=== PATIENT | female | born 2000 | race Caucasian/White ===

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

== ENCOUNTER 2024-03-20 23:02 | Emergency (ER) | payer MEDICAID, SELFPAY ==
[2024-03-20 23:03] VITALS: BP 136/81; PULSE 83; RESP 15; TEMP 36.8; O2SAT 97; BMI 33.5
[2024-03-20] MEDS: Ondansetron 4 MG/2 ML Vial IV (23:38)
[2024-03-20] MEDS: 0.9% Normal Saline (1000mL) 1,000 ML 999 ML IV (23:38)
[2024-03-20 23:44] LABS: Bacteria 0 SEEN /hpf (None Seen); Mucous, Urine 0 SEEN /hpf (<or=2+); Red Blood Cells-Urine 0 SEEN /hpf (0-5); Squamous Epithelial Cells - UA 0 SEEN /hpf (5-10); White Blood Cells 0 SEEN /hpf (0-5)
[2024-03-20 23:47] LABS: Absolute Neutrophil Count 5.4 X10^3/uL (2.0-7.7); Basophil# 0.05 X10^3/uL; Basophil% 0.6 % (0-1); Eosinophil# 0.12 X10^3/uL; Eosinophils% 1.3 % (0-5); Hematocrit 39.3 % (37-47); Hemoglobin 12.6 g/dL (12.0-15.0); Lymphocyte % 29.1 % (19-41); Mean Corp Hgb Conc 32.1 g/dL (32-36); Mean Corpuscular Volume 84.2 fL (81-99); Mean Platelet Vol. 10.5 fl (6.2-12.0); Monocyte# 0.71 X10^3/uL; NRBC Flagged by Analyzer 0 % (0-5); Neutrophil # 5.43 X10^3/uL (2.7-7.7); Neutrophil % 60.8 % (47-70); Platelet Count 321 K/mm3 (150-450); RBC Distribution Width CV 13.4 % (11.6-14.6); RBC Distribution Width SD 41.1 fl (35.1-43.9); Red Blood Count 4.67 M/mm3 (4.2-5.4); White Blood Count 8.9 K/mm3 (4.4-11.0)
[2024-03-20 23:52] LABS: Color, Urine Yellow (Yellow); Glucose, Dipstick Normal (Normal); Ketone-Dipstick Negative (Negative); Leukocyte Esterase-Dipstick Negative /ul (Negative); Nitrite-Dipstick Negative (Negative); Occult Blood-Urine Negative /ul (Negative); Protein-Dipstick Negative (Negative); Urine Bilirubin Dipstick Negative (Negative); Urine Clarity Clear (Clear); Urine Urobilinogen Normal (Normal)
[2024-03-20 23:55] LABS: Internal QC Validated? YES +Cl - CLEAR BKGD; Pregnancy, Urine Negative Negative
[2024-03-20 23:56] LABS: Record Kit Lot#,Urine Preg 718089
[2024-03-21 00:06] LABS: AST(SGOT) 16 U/L (15-37); Alanine Aminotransfer ALT/SGPT 20 U/L (13-56); Albumin, Serum 3.9 g/dL (3.2-5.0); Alkaline Phosphatase 93 U/L (45-117); Anion Gap 2 (5-15); BUN 12 mg/dL (7-18); BUN/Creat Ratio 17.7 RATIO (10-20); Bilirubin, Direct 0.05 mg/dL (0.00-0.30); Calcium,Total 9.5 mg/dL (8.5-10.1); Chloride 106 mmol/L (98-107); Creatinine, Serum 0.68 mg/dL (0.55-1.02); EST Glomerular Filtration Rate 114 mL/min (>60); Est Glom Filt Rate - Afr Amer 138 mL/min (>60); Estimated Creatinine Clearance 138.53 ml/min; Glucose 103 mg/dL (74-106); Lipase 40 U/L (13-75); Potassium 3.8 mmol/L (3.5-5.1); Protein, Total 6.9 g/dL (6.4-8.2); Sodium Level 138 mmol/L (136-145)
[2024-03-21 00:09] LABS: Lactic Acid 0.8 mmol/L (0.4-1.9)
[2024-03-21] MEDS: Morphine 4 MG/ML Syringe IV (01:01)
[2024-03-21 01:03] VITALS: BP 110/69; PULSE 69; RESP 17; O2SAT 97
--- NOTE | 2024-03-21 01:26 | US_ITS ---
We are attempting to reach an attending provider to discuss findings. An addendum with communication details will be sent when the communication is complete. INDICATION: ? Ovarian torsion -- RLQ pain two weeks EXAMINATION: Ultrasound US Transvaginal Non-OB TECHNIQUE: Transvaginal (for optimal evaluation of the adnexa) pelvic ultrasound was performed. Grayscale, spectral waveform, and color flow Doppler evaluation of the adnexa. COMPARISON: CT abdomen and pelvis earlier same day LMP: 03/04/2024. FINDINGS: UTERUS: 7.8 cm length. Normal configuration. ENDOMETRIUM: Not thickened. OVARIES: Right ovary: 3.4 x 1.8 x 1.9 cm. Left ovary: 2.5 x 1.5 x 1.9 cm. The ovaries appear unremarkable. Vascular flow demonstrated. No findings to suggest ovarian torsion. FREE FLUID: None. US/Transvaginal Non- IMPRESSION: No acute findings. Electronically Signed: Wilma Clay MD at 3:05 EDT ,
[2024-03-21 03:00] VITALS: BP 110/74; PULSE 64; RESP 18; O2SAT 98
--- NOTE | 2024-03-21 03:29 | EDS_ITS ---
HPI History of Present Illness Chief Complaint: Abd Pain Narrative Narrative: Patient is a 24-year-old female with no significant past medical history who is roughly 3 months . She states over the last 3 to 5 days she has been noticing increasing pain in the lower abdomen mainly the suprapubic to right lower quadrant region. She denies any dysuria or vaginal bleeding or discharge. She denies any concern for STD. She states that there has been no recent trauma. However the pain has worsened in the last few days and secondary to this she presents for evaluation [facility] Medical History no medical history Home Medications ?Medication ?Instructions ?Recorded ?Last Taken ?Type apixaban 5 mg tablet (Eliquis) 5 mg PO BID 30 days #60 tabs 03/21/24 Unknown Rx Allergy/AdvReac Type Severity Reaction Status Date / Time No Known Allergies Allergy Verified 03/20/24 23:05 Surgical History no surgical history Social History Smoking Status: Never smoker ROS ROS ED Constitutional Constitutional ED: Denies chills or fever(s) ENT ENT ED: Denies sore throat Cardiovascular Cardiovascular: Denies chest pain Respiratory/Chest Respiratory/Chest: Denies cough or dyspnea Gastrointestinal Gastrointestinal: Reports abdominal pain; Denies diarrhea, nausea or vomiting Genitourinary Genitourinary ED: Denies dysuria, hematuria or urinary frequency Musculoskeletal Musculoskeletal: Reports back pain; Denies myalgias Integumentary Denies rash Neurologic Neurologic: Denies headache(s) Hematologic/Lymphatic Hematologic/Lymphatic: Denies easy bleeding or easy bruising EXAM Physical Exam Const Vital Signs: 03/20/24 23:03 03/21/24 01:03 Temperature 98.3 F Temperature Source Temporal Pulse Rate 83 69 Respiratory Rate 15 17 Blood Pressure 136/81 H 110/69 Blood Pressure Mean 99 82 Pulse Ox 97 97 Oxygen Delivery Method Room Air Room Air Positive well nourished and well developed General Appearance ED: well developed; Negative for pallor HEENT HEENT Narrative: Normocephalic atraumatic Eyes PERRL and EOMs intact bilaterally General Eye ED: Negative for scleral icterus Neck supple Resp normal respiratory effort and clear to auscultation bilaterally Cardio regular rate and regular rhythm Rate: other Other Details: Heart is regular rate and rhythm without murmurs rubs or gallop Radial and carotid pulses are equal and symmetric GI non-distended GI Narrative: Abdomen is soft and nondistended with normal active bowel sounds. Patient has pain on palpation in the suprapubic and right lower quadrant greatest in the right lower quadrant. There is voluntary guarding at the site. Positive heel strike and psoas sign noted. Auscultation: normoactive bowel sounds Palpation: soft Back/Spine Back/Spine Narrative: Mild right CVA pain noted Extremity normal to inspection Extremity Narrative: No asymmetric edema no pitting edema negative Homans' sign bilaterally Neuro oriented x3, CN's II-XII intact bilaterally and no sensory deficits noted Sensorium / Orientation: alert Motor Exam: strength 5/5 throughout Psych mental status grossly normal Skin no rashes or lesions noted, no wounds and skin turgor normal General Skin Exam: Negative for jaundice or pallor MDM MDM MDM Narrative Medical decision making narrative: Patient arrived to the ER with stable vitals but had pain with guarding in the right lower quadrant and therefore differential diagnosis is for UTI versus pyelonephritis versus kidney stone versus appendicitis versus colitis versus ovarian cyst. Secondary to his basic labs and a CT scan with IV contrast was obtained. Labs revealed no clinically significant findings but CT scan did show changes consistent with ovarian vein thrombosis. I discussed the case with INVESTIGATOR OPERATOR and they want a emergent transvaginal ultrasound to rule out torsion. This was obtained and was normal. At this time based on the patient's CT scan showing the ovarian vein thrombosis she is at risk for potential clot migration and PE but she does not have chest pain or shortness of breath so I do not feel there is need for CTA. The patient will be started on Eliquis secondary to the ovarian vein thrombosis but as there is no sign of torsion and she does not have physical exam findings suggesting PE there is no need for further workup and she can follow on an outpatient basis Lab Data Labs: Laboratory Results - last 24 hr 03/20/24 03/20/24 23:27 23:30 WBC 8.9 RBC 4.67 Hgb 12.6 Hct 39.3 MCV 84.2 MCH 27.0 MCHC 32.1 RDW Std Deviation 41.1 RDW Coeff of Brie 13.4 Plt Count 321 MPV 10.5 Immature Gran % (Auto) 0.200 Neut % (Auto) 60.8 Lymph % (Auto) 29.1 [place] % (Auto) 8.0 Eos % (Auto) 1.3 Baso % (Auto) 0.6 Absolute Neuts (auto) 5.4 Absolute Lymphs (auto) 2.60 Nucleated RBC % 0 Sodium 138 Potassium 3.8 Chloride 106 Carbon Dioxide 30.0 Anion Gap 2 L BUN 12 Creatinine 0.68 Estim Creat Clear Calc 138.53 Est GFR (MDRD) Af Amer 138 Est GFR (MDRD) Non-Af 114 BUN/Creatinine Ratio 17.7 Glucose 103 Lactic Acid 0.8 Calcium 9.5 Total Bilirubin 0.30 Direct Bilirubin 0.05 AST 16 ALT 20 Alkaline Phosphatase 93 Total Protein 6.9 Albumin 3.9 Globulin 3.0 Lipase 40 Urine Color Yellow Urine Clarity Clear Urine pH 7.0 Ur Specific [place] 1.010 Urine Protein Negative Urine Glucose (UA) Normal Urine Ketones Negative Urine Occult Blood Negative Urine Nitrite Negative Urine Bilirubin Negative Urine Urobilinogen Normal Ur Leukocyte Esterase Negative Urine RBC 0 SEEN Urine WBC 0 SEEN Ur Squamous Epith Cells 0 SEEN Urine Bacteria 0 SEEN Urine Mucus 0 SEEN Urine Test Negative Radiography Diagnostic Testing: Clinical Impression(s) from Imaging Studies Transvaginal US 03/21/24 01:26 IMPRESSION: No acute findings. Electronically Signed: Wilma Clay MD at 3:05 EDT , ADDENDUM: 03/21/24 0323 IMPRESSION: No acute findings. N.B. : The above Results were Read Back by Wilma Clay MD to Marvin Anderson DO, and understanding confirmed on 03/21/2024 03:16:45 (ET). Electronically Signed: Wilma Clay MD at 3:05 EDT , Abdomen/Pelvis CT 03/21/24 23:24 IMPRESSION: Findings highly suspicious for right ovarian vein thrombosis. Patient would be at risk for pulmonary emboli. Prominent wall urinary bladder nondistention versus cystitis. No evidence of acute appendicitis. Electronically Signed: Wilma Clay MD at 1:02 EDT Reading Location ID and State: [facility] [place] / [place] Tel , Service support , Discharge Plan Triage Chief Complaint: Abd Pain ED Provider: Marvin Anderson Dx/Rx/DC Orders Clinical Impression: Thrombosis of ovarian vein Instructions: Understanding Deep Vein Thrombosis, DVT Tx Prescriptions: New Eliquis 5 mg tablet 5 mg PO BID 30 Days Qty: 60 0RF Primary Care Provider: Kane Bentley Referrals: Kane Bentley DO [Primary Care Provider] - Activity Restrictions/Additional Instructions: Your CT scan showed a blood clot/thrombus in your ovarian vein. Secondary to this take the Eliquis as directed to help dissolve the clot and prevent any further clot complications. Follow-up with your family doctor to discuss need for further testing and as the clot involves the ovarian vein talk to your OB doctor as well. Do not breast-feed while you are on the blood thinner. Return to the ER should you have any further concerns or worsening of symptoms Print Language: [place]an Disposition Disposition: Home, Self Care Discharge Date/Time: 03/21/24 04:10
[2024-03-21 03:47] VITALS: BP 97/60; PULSE 66; RESP 16; TEMP 36.8; O2SAT 99
[2024-03-21] MEDS: APIXABAN 5 MG TABLET PO (04:09)
--- NOTE | 2024-03-21 23:24 | CT_ITS ---
EXAM: CT Abdomen And Pelvis W/ Contrast Injection HISTORY: abd pain / RLQ pain TECHNIQUE: Routine protocol CT abdomen pelvis. IV Contrast: IV 100mL [id number] . Oral Contrast: without. Sagittal and coronal images were reconstructed. RADIATION DOSAGE (If Supplied By Facility): CTDIvol = ( 11.12 ) mGy, DLP = ( 661.76 ) mGycm Individualized dose optimization techniques were used for this CT. COMPARISON: None. LIMITATIONS: None. FINDINGS: LOWER CHEST: Lung bases are clear. LIVER: Unremarkable. GALLBLADDER/BILE DUCTS: Unremarkable. PANCREAS: Unremarkable. SPLEEN: Unremarkable. ADRENAL GLANDS: Unremarkable. KIDNEYS / URETERS: Unremarkable. BOWEL / MESENTERY: Unremarkable. No bowel obstruction. APPENDIX: Identified and normal. No evidence of acute appendicitis. PERITONEUM: No free air. No free fluid. VESSELS: Abdominal aorta is normal caliber. The right ovarian vein is relatively enlarged compared to the left, along the course from the level of lower pole right kidney anterior to the psoas muscle to just above the adnexa, with relative low attenuation centrally, and mild adjacent stranding. RETROPERITONEUM: Unremarkable. REPRODUCTIVE ORGANS: Unremarkable. BLADDER: Mildly distended. Prominent wall. ABDOMINAL WALL: Unremarkable. BONES: No acute abnormality. OTHER: None. CT/Abdomen/Pelvis W IV Cont ONLY IMPRESSION: Findings highly suspicious for right ovarian vein thrombosis. Patient would be at risk for pulmonary emboli. Prominent wall urinary bladder nondistention versus cystitis. No evidence of acute appendicitis. Electronically Signed: Wilma Clay MD at 1:02 EDT ,
== END 2024-03-21 04:10 | disposition home or self-care (01) ==
PROVIDERS: Emergency Provider Emergency Medicine; PCP Family Medicine; Visit Provider Emergency Medicine
DX: I82.890 Acute embolism and thrombosis of other specified veins (principal)
CPT/HCPCS: 74177; 76830; 80048; 80076; 81001; 81025; 83605; 83690; 85025; 96374; 96375; 99283; J7030; Q9967; A4216; J2405